=== PATIENT | male | born 1960 | race Caucasian/White ===

== ENCOUNTER 2018-01-25 06:40 | Day surgery (SDC) | payer OTHER ==
[~2018-01-25 06:40] MED LIST: BENICAR40 MG PO; CARVEDILOL25 MG PO; CODE1TAB37 PO; LIBRAX PO; Levsin/Sl 0.125 MG TAB.SUBL SL; Mylicon 125MG PO; NORVASC5 MG PO; POLY119PG PO; TRAM1TAB98 PO
== END 2018-01-25 11:00 | disposition home or self-care (01) ==
LOC: AMB-ENDOS 06:40
DX: D12.3 Benign neoplasm of transverse colon (principal); D12.4 Benign neoplasm of descending colon; K57.32 Diverticulitis of large intestine without perforation or abscess without bleeding; K62.6 Ulcer of anus and rectum

== ENCOUNTER 2020-07-16 07:19 | Day surgery (SDC) | payer OTHER | END 2020-07-16 12:30 | disposition home or self-care (01) | LOC: AMB-ENDOS 07:19 | PROVIDERS: ATTEND Surgery | DX: D12.4 Benign neoplasm of descending colon (principal); D13.0 Benign neoplasm of esophagus; D13.2 Benign neoplasm of duodenum; Z20.828 Contact with and (suspected) exposure to other viral communicable diseases ==